=== PATIENT | male | born 1965 | race African-American/Black ===

== ENCOUNTER 2017-11-11 16:55 | Inpatient (IN) | payer OTHER ==
[2017-11-11 21:50] VITALS: BMI 22.3
--- NOTE | 2017-11-11 23:32 | HP ---
CIWA Score - CIWA Score Nausea/Vomitin-No Nausea/No Vomiting Muscle Tremors: 1-None Visible, but [place] Anxiety: 4-Mod. Anxious/Guarded Agitation: 4-Moderately Restless Paroxysmal Sweats: 3 Orientation: 3-Disoriented Date>2 days Tacttile Disturbances: 2-Mild Itch/Numbness/Burn Auditory Disturbances: 0-None Visual Disturbances: 0-None Headache: 0-None Present CIWA-Ar Total Score: 17 Admission ROS BHS - HPI Chief Complaint: " I AM AN ADDICT AND I NEED HELP" Allergies/Adverse Reactions: Allergies Allergy/AdvReac Type Severity Reaction Status Date / Time Penicillins Allergy Verified 11/11/17 23:26 History of Present Illness: 52 Y.O. AAM SEEKING DETOX FOR ALCOHOLISM CLIENT HAS A LONG HX/O SELF REFERRED. THIS IS HIS FIRST TIME HERE. STATES LAST DETOX A LITTLE OVER THREE WEEKS AGO SOMEWHERE IN [facility] DOES NOT RECALL. REPORTS IMMEDIATELY RELAPSING AFTER DC. REPORTS LONGEST CLEAN TIME 1 YEAR. Exam Limitations: Clinical Condition - Ebola screening Have you traveled outside of the country in the last 21 days: No Have you had contact with anyone from an Ebola affected area: No Have you been sick,other than usual withdrawal symptoms: No Do you have a fever: No - Review of Systems Constitutional: Loss of Appetite, Malaise, Changes in sleep EENT: reports: No Symptoms Reported Respiratory: reports: Other (HX/O ASTHMA CONGESTION) Cardiac: reports: No Symptoms Reported GI: reports: Poor Appetite, Poor Fluid Intake : reports: No Symptoms Reported Musculoskeletal: reports: Back Pain, Neck Pain Integumentary: reports: No Symptoms Reported Neuro: reports: No Symptoms reported Endocrine: reports: No Symptoms Reported Hematology: reports: No Symptoms Reported Psychiatric: reports: No Sypmtoms Reported Other Systems: Reviewed and Negative Patient History - Patient Medical History Hx Anemia: No Hx Asthma: Yes Hx Chronic Obstructive Pulmonary Disease (COPD): No Hx Cancer: No Hx Cardiac Disorders: No Hx Congestive Heart Failure: No Hx Hypertension: No Hx Hypercholesterolemia: No Hx Pacemaker: No HX Cerebrovascular Accident: No Hx Seizures: No Hx Dementia: No Hx Diabetes: No Hx Gastrointestinal Disorders: No Hx Liver Disease: No Hx Genitourinary Disorders: No Hx Sexually Transmitted Disorders: No Hx Renal Disease (ESRD): No Hx Hepatitis C: No Hx Depression: Yes (FEELS) Hx Suicide Attempt: No Hx Bipolar Disorder: No Hx Schizophrenia: No Other Medical History: DENIES - Patient Surgical History Past Surgical History: No - PPD History Previous Implant?: No Documented Results: Negative w/o proof Implanted On Prior [facility] Admission?: No PPD to be Administered?: Yes - Smoking Cessation Smoking history: Current every day smoker Have you smoked in the past 12 months: Yes Aproximately how many cigarettes per day: 30 Cigars Per Day: 0 Hx Chewing Tobacco Use: No Initiated information on smoking cessation: Yes 'Breaking Loose' booklet given: 11/11/17 - Substance & Tx. History Hx Alcohol Use: Yes Hx Substance Use: Yes Substance Use Type: Alcohol, Cocaine Hx Substance Use Treatment: Yes ([facility]) - Substances Abused LIQUOR/ BEER Route: Oral Frequency: Daily Amount used: 1PINT/5-16OZ Age of first use: 14 Date of Last Use: 11/10/17 CRACK/COCAINE Route: Smoking Frequency: Daily Amount used: $100 Age of first use: 20 Date of Last Use: 11/10/17 Family Disease History - Family Disease History Family History: Denies Admission Physical Exam [facility] - Vital Signs Vital Signs: Vital Signs - 24 hr 11/11/17 21:48 Temperature 97.8 F Pulse Rate 75 Respiratory 20 Rate Blood Pressure 151/99 - Physical General Appearance: Yes: Appropriately Dressed, Mild Distress, Tremorous, Irritable, Other (DROWSI/ AROUSABLE) HEENTM: Yes: EOMI, Normocephalic, Normal Voice, ELVA, Pharynx Normal, Nasal Congestion Respiratory: Yes: Chest Non-Tender, Lungs Clear, Normal Breath Sounds, No Respiratory Distress, No Accessory Muscle Use Neck: Yes: No masses,lesions,Nodules, Supple, Trachea in good position Breast: Yes: Breast Exam Deferred Cardiology: Yes: Regular Rhythm, Regular Rate, S1, S2 Abdominal: Yes: Normal Bowel Sounds, Non Tender, Flat, Soft Genitourinary: Yes: Within Normal Limits Back: Yes: Normal Inspection Musculoskeletal: Yes: full range of Motion, Gait Steady Extremities: Yes: Normal Capillary Refill, Normal Range of Motion, Non-Tender, Tremors Neurological: Yes: Alert, Motor Strength 5/5, Other (DROWSI) Integumentary: Yes: Normal Color, Dry, Warm Lymphatic: Yes: Within Normal Limits - Diagnostic (1) Alcohol dependence with uncomplicated withdrawal Current Visit: Yes Status: Chronic (2) Cocaine dependence, uncomplicated Current Visit: Yes Status: Chronic (3) Nicotine dependence Current Visit: Yes Status: Chronic Qualifiers: Nicotine product type: cigarettes Substance use status: uncomplicated Qualified Code(s): F17.210 - Nicotine dependence, cigarettes, uncomplicated (4) Asthma Current Visit: Yes Status: Chronic Qualifiers: Asthma severity: mild Asthma persistence: intermittent Asthma complication type: uncomplicated Qualified Code(s): J45.20 - Mild intermittent asthma, uncomplicated Cleared for Admission [facility] - Detox or Rehab [facility] Level of Care: Medically Managed Detox Regimen/Protocol: Librium Claeared for Rehab Admission: No BHS Breath Alcohol Content Breath Alcohol Content: 0 Urine Drug Screen - Results Drug Screen Negative: No Urine Drug Screen Results: PAZ-Cocaine
[2017-11-11] MEDS ORDERED: MAGNESIUM HYDROX 2400MG/30ML ORAL SUSPENSION 30 ML CUP PO PRN (23:44)
[2017-11-11] MEDS ORDERED: ACETAMINOPHEN 325 MG TABLET (FP) PO PRN (23:44)
[2017-11-11] MEDS ORDERED: LOPERAMIDE HCL 2 MG CAPSULE PO PRN (23:44)
[2017-11-11] MEDS ORDERED: MENTHOL/PHENOL 1 EACH UD MM PRN (23:44)
[2017-11-11] MEDS ORDERED: IBUPROFEN 400 MG TABLET (FP) PO PRN (23:44)
[2017-11-11] MEDS ORDERED: NICOTINE POLACRILEX 4 MG GUM BC PRN (23:44)
[2017-11-11] MEDS ORDERED: hydrOXYzine PAMOATE 50 MG CAPSULE (FP) PO PRN (23:44)
[2017-11-11] MEDS ORDERED: MAG HYDROX/AL HYDROX/SIMETH 30 ML UNIT-DOSE CUP PO PRN (23:44)
[2017-11-11] MEDS ORDERED: MAGNESIUM CITRATE 300 ML BOTTLE PO PRN (23:44)
[2017-11-11] MEDS ORDERED: guaiFENesin/D-METHORPHAN HB 10 ML UNIT-DOSE CUPS PO PRN (23:44)
[2017-11-11] MEDS ORDERED: P-EPHED 60MG/TRIPROLIDI 2.5MG TABLET PO PRN (23:44)
[2017-11-12] MEDS: chlordiazePOXIDE HCL 25 MG CAPSULE PO SCH ×6 (00:54→22:58)
[2017-11-12] MEDS: MELATONIN 5 MG TABLETS PO SCH ×2 (01:01→22:58)
--- NOTE | 2017-11-12 09:33 | PN ---
BHS COWS - Scale Resting Pulse: 0= [place] 80 or Below Sweatin= Chills/Flushing Restless Observation: 1= Difficult to Sit Still Pupil Size: 1= Pupils >than Normal Bone or Joint Aches: 2= Severe Diffuse Aches Runny Nose/ Eye Tearin= Runny Nose/Eyes GI Upset > 30mins: 1= Stomach Cramp Tremor Observation of Outstretched Hands: 1= Tremor [place], Not Seen Yawning Observation: 4= Several Times/Minute Anxiety or Irritability: 2=Irritable/Anxious Goose Flesh Skin: 0=Smooth Skin COWS Score: 15 S Progress Note (SOAP) Subjective: sweat tremor restlessness joint aches muscle pain running nose anxiety irritable Objective: 11/12/17 09:31 Vital Signs Temperature 97.9 F 11/12/17 06:00 Pulse Rate 67 11/12/17 06:00 Respiratory Rate 18 11/12/17 06:00 Blood Pressure 140/73 11/12/17 06:00 lab O2 Sat by Pulse Oximetry (%) Vital Signs Temperature 97.9 F 11/12/17 06:00 Pulse Rate 67 11/12/17 06:00 Respiratory Rate 18 11/12/17 06:00 Blood Pressure 140/73 11/12/17 06:00 O2 Sat by Pulse Oximetry (%) lab not available at this time Assessment: 11/12/17 09:32 withdrawal sx Plan: continue detox
--- NOTE | 2017-11-12 09:49 | CONSULT ---
[facility] Psychiatric Consult - Data Date of interview: 11/12/17 Admission source: [facility] Identifying data: This is 52 years opld male, single, living alone, on SSD, with no psychiatric hospitalization history. here for detox from Alcohol, Crack and Nicotine dependence. Substance Abuse History: As per [facility] report:52 Y.O. AAM SEEKING DETOX FOR ALCOHOLISM CLIENT HAS A LONG HX/O SELF REFERRED. THIS IS HIS FIRST TIME HERE. STATES LAST DETOX A LITTLE OVER THREE WEEKS AGO SOMEWHERE IN [facility] DOES NOT RECALL. REPORTS IMMEDIATELY RELAPSING AFTER DC. REPORTS LONGEST CLEAN TIME 1 YEAR. Exam Limitations: Clinical Condition Medical History: Asthma, Weight loss history Psychiatric History: Patient reports history of depression and anxiety, reports no psychiatric hospitalization history, denies suicidal history as well. Patient reports no medications taking prior to admission. Physical/Sexual Abuse/Trauma History: Denies Additional Comment: Observation. Detox Unit Care Protocol Mental Status Exam - Mental Status Exam Alert and Oriented to: Person Cognitive Function: Fair Patient Appearance: Unkempt Mood: Sad Affect: Flat Patient Behavior: Sedated Speech Pattern: Delayed Voice Loudness: Moderately Soft/Quiet Thought Process: Circumstantial Thought Disorder: Being Controlled Hallucinations: Denies Suicidal Ideation: Denies Homicidal Ideation: Denies Insight/Judgement: Fair Sleep: Difficulty falling asleep Appetite: Weight loss Muscle strength/Tone: Moderate Hypotonicity Gait/Station: Shuffling Additional Comments: Observation. Detox Unit Care Protocol Psychiatric Findings - Problem List ([place] 1, 2,3) (1) Drug-induced mood disorder Current Visit: Yes Status: Acute (2) Alcohol dependence with uncomplicated withdrawal Current Visit: Yes Status: Chronic (3) Cocaine dependence, uncomplicated Current Visit: Yes Status: Chronic (4) Nicotine dependence Current Visit: Yes Status: Chronic Qualifiers: Nicotine product type: cigarettes Substance use status: uncomplicated Qualified Code(s): F17.210 - Nicotine dependence, cigarettes, uncomplicated - Initial Treatment Plan Initial Treatment Plan: Observation. Detox Unit Care Protocol
--- NOTE | 2017-11-12 09:58 | EKG ---
Test Reason : Blood Pressure : / mmHG Vent. Rate : 058 BPM Atrial Rate : 058 BPM P-R Int : 140 ms QRS Dur : 092 ms QT Int : 404 ms P-R-T Axes : 074 072 072 degrees QTc Int : 396 ms SINUS BRADYCARDIA MODERATE VOLTAGE CRITERIA FOR LVH, MAY BE NORMAL VARIANT BORDERLINE ECG NO PREVIOUS ECGS AVAILABLE Confirmed by ZEYAD WILSON MD ([id number]) on 11/12/2017 9:58:16 AM Referred By: Confirmed By:ZEYAD WILSON MD
[2017-11-12 10:08] LABS: HEMATOCRIT 40.8 % (35.4-49); HEMOGLOBIN 12.8 GM/dL (11.7-16.9); MCHC 31.4 g/dl (32.0-35.9); MEAN CELL VOLUME 76.6 fl (80-96); MEAN PLT VOLUME 9.3 fl (7.5-11.1); PLATELET COUNT 156 K/MM3 (134-434); RBC 5.33 M/mm3 (4.00-5.60); RDW 13.8 % (11.9-15.9); WHITE BLOOD COUNT 3.7 K/mm3 (4.0-10.0)
[2017-11-12 10:38] LABS: CHLORIDE 106 mmol/L (98-107); POTASSIUM 3.8 mmol/L (3.5-5.1); SODIUM 143 mmol/L (136-145)
[2017-11-12 10:50] LABS: ALBUMIN 2.9 g/dl (3.4-5.0); ALK PHOS 127 U/L (45-117); ANION GAP 11 (8-16); BILIRUBIN,TOTAL 0.4 mg/dL (0.2-1.0); BLOOD UREA NITROGEN 12 mg/dL (7-18); CALCIUM 8.4 mg/dL (8.5-10.1); CO2 26 mmol/L (21-32); CREATININE 1.1 mg/dL (0.7-1.3); GLUCOSE,RANDOM 105 mg/dL (74-106); SGOT/AST 24 U/L (15-37); SGPT/ALT 37 U/L (12-78); TOT PROT 5.8 g/dl (6.4-8.2)
[2017-11-12] MEDS: NICOTINE 21 MG/24 HOURS TOPICAL PATCH TD SCH (10:59)
[2017-11-12] MEDS: PRENATAL VITAMINS W/ FOLIC ACID TABLET (FP) PO SCH (11:00)
[2017-11-12] MEDS: chlordiazePOXIDE HCL 25 MG CAPSULE PO PRN (11:21)
[2017-11-12] MEDS: PETROLATUM, WHITE 30 GM TUBE TP SCH (13:26)
[2017-11-12 21:20] LABS: URINE APPEARANCE CLEAR; URINE BILIRUBIN NEGATIVE (NEGATIVE); URINE BLOOD NEGATIVE (NEGATIVE); URINE COLOR LTYELLOW; URINE GLUCOSE (UA) NEGATIVE (NEGATIVE); URINE KETONE NEGATIVE (NEGATIVE); URINE LEUK ESTERASE NEGATIVE (NEGATIVE); URINE NITRITE NEGATIVE (NEGATIVE); URINE PROTEIN NEGATIVE (NEGATIVE); URINE UROBILINOGEN NEGATIVE mg/dL (0.2-1.0)
[2017-11-12] MEDS: THIAMINE HCL 100 MG TABLET (FP) PO SCH (22:58)
[2017-11-13] MEDS: chlordiazePOXIDE HCL 25 MG CAPSULE PO SCH ×3 (06:52→18:20)
[2017-11-13] MEDS: PRENATAL VITAMINS W/ FOLIC ACID TABLET (FP) PO SCH (11:13)
[2017-11-13] MEDS: PETROLATUM, WHITE 30 GM TUBE TP SCH (11:15)
[2017-11-13] MEDS: NICOTINE 21 MG/24 HOURS TOPICAL PATCH TD SCH (11:15)
--- NOTE | 2017-11-13 12:12 | PN ---
[facility] CIWA - CIWA Score Nausea/Vomitin-Mild Nausea/No Vomiting Muscle Tremors: 4-Moderate,w/Arms Extend Anxiety: 4-Mod. Anxious/Guarded Agitation: 3 Paroxysmal Sweats: 1-Minimal [place] Moist Orientation: 0-Oriented Tacttile Disturbances: 0-None Auditory Disturbances: 0-None Visual Disturbances: 0-None Headache: 0-None Present CIWA-Ar Total Score: 13 BHS Progress Note (SOAP) Subjective: sweat tremor mild gi distress restlessness sleep little better agitative irritable Objective: 11/13/17 12:12 Vital Signs Temperature 97.7 F 11/13/17 10:00 Pulse Rate 78 11/13/17 10:00 Respiratory Rate 16 11/13/17 10:00 Blood Pressure 140/86 11/13/17 10:00 O2 Sat by Pulse Oximetry (%) Laboratory Last Values WBC 3.7 K/mm3 (4.0-10.0) L 11/12/17 07:00 RBC 5.33 M/mm3 (4.00-5.60) 11/12/17 07:00 Hgb 12.8 GM/dL (11.7-16.9) 11/12/17 07:00 Hct 40.8 % (35.4-49) 11/12/17 07:00 MCV 76.6 fl (80-96) L 11/12/17 07:00 MCH 24.0 pg (25.7-33.7) L 11/12/17 07:00 MCHC 31.4 g/dl (32.0-35.9) L 11/12/17 07:00 RDW 13.8 % (11.9-15.9) 11/12/17 07:00 Plt Count 156 K/MM3 (134-434) 11/12/17 07:00 MPV 9.3 fl (7.5-11.1) 11/12/17 07:00 Sodium 143 mmol/L (136-145) 11/12/17 07:00 Potassium 3.8 mmol/L (3.5-5.1) 11/12/17 07:00 Chloride 106 mmol/L (98-107) 11/12/17 07:00 Carbon Dioxide 26 mmol/L (21-32) 11/12/17 07:00 Anion Gap 11 (8-16) 11/12/17 07:00 BUN 12 mg/dL (7-18) 11/12/17 07:00 Creatinine 1.1 mg/dL (0.7-1.3) 11/12/17 07:00 Creat Clearance w eGFR > 60 (>60) 11/12/17 07:00 Random Glucose 105 mg/dL (74-106) 11/12/17 07:00 Calcium 8.4 mg/dL (8.5-10.1) L 11/12/17 07:00 Total Bilirubin 0.4 mg/dL (0.2-1.0) 11/12/17 07:00 AST 24 U/L (15-37) 11/12/17 07:00 ALT 37 U/L (12-78) 11/12/17 07:00 Alkaline Phosphatase 127 U/L (45-117) H 11/12/17 07:00 Total Protein 5.8 g/dl (6.4-8.2) L 11/12/17 07:00 Albumin 2.9 g/dl (3.4-5.0) L 11/12/17 07:00 Urine Color Ltyellow 11/12/17 20:00 Urine Appearance Clear 11/12/17 20:00 Urine pH 6.0 (5.0-8.0) 11/12/17 20:00 Ur Specific [place] 1.013 (1.001-1.035) 11/12/17 20:00 Urine Protein Negative (NEGATIVE) 11/12/17 20:00 Urine Glucose (UA) Negative (NEGATIVE) 11/12/17 20:00 Urine Ketones Negative (NEGATIVE) 11/12/17 20:00 Urine Blood Negative (NEGATIVE) 11/12/17 20:00 Urine Nitrite Negative (NEGATIVE) 11/12/17 20:00 Urine Bilirubin Negative (NEGATIVE) 11/12/17 20:00 Urine Urobilinogen Negative mg/dL (0.2-1.0) 11/12/17 20:00 Ur Leukocyte Esterase Negative (NEGATIVE) 11/12/17 20:00 RPR Titer Nonreactive (NONREACTIVE) 11/12/17 07:00 HIV 1&2 Antibody Screen Negative 11/12/17 07:00 HIV P24 Antigen Negative 11/12/17 07:00 lab noted Assessment: 11/13/17 12:12 wtihdrawal sx Plan: continue detox
[2017-11-13] MEDS: THIAMINE HCL 100 MG TABLET (FP) PO SCH (22:19)
[2017-11-13] MEDS: MELATONIN 5 MG TABLETS PO SCH (22:19)
[2017-11-13] MEDS: chlordiazePOXIDE 5 MG CAPSULE PO SCH (22:20)
[2017-11-14] MEDS: chlordiazePOXIDE 5 MG CAPSULE PO SCH ×3 (06:46→22:22)
[2017-11-14] MEDS: chlordiazePOXIDE HCL 25 MG CAPSULE PO PRN (06:53)
--- NOTE | 2017-11-14 10:03 | PN ---
BHS Progress Note (SOAP) Subjective: interrupted sleep, cranky and fady pain of soles of feet. Objective: 11/14/17 10:01 Vital Signs Temperature 96.3 F L 11/14/17 09:35 Pulse Rate 71 11/14/17 09:35 Respiratory Rate 18 11/14/17 09:35 Blood Pressure 134/80 11/14/17 09:35 O2 Sat by Pulse Oximetry (%) Laboratory Tests 11/12/17 11/12/17 11/12/17 07:00 07:00 07:00 WBC 3.7 L RBC 5.33 Hgb 12.8 Hct 40.8 MCV 76.6 L MCH 24.0 L MCHC 31.4 L RDW 13.8 Plt Count 156 MPV 9.3 Sodium 143 Potassium 3.8 Chloride 106 Carbon Dioxide 26 Anion Gap 11 BUN 12 Creatinine 1.1 Creat Clearance w eGFR > 60 Random Glucose 105 Calcium 8.4 L Total Bilirubin 0.4 AST 24 ALT 37 Alkaline Phosphatase 127 H Total Protein 5.8 L Albumin 2.9 L Urine Color Urine Appearance Urine pH Ur Specific [place] Urine Protein Urine Glucose (UA) Urine Ketones Urine Blood Urine Nitrite Urine Bilirubin Urine Urobilinogen Ur Leukocyte Esterase RPR Titer Nonreactive HIV 1&2 Antibody Screen HIV P24 Antigen 11/12/17 11/12/17 07:00 20:00 WBC RBC Hgb Hct MCV MCH MCHC RDW Plt Count MPV Sodium Potassium Chloride Carbon Dioxide Anion Gap BUN Creatinine Creat Clearance w eGFR Random Glucose Calcium Total Bilirubin AST ALT Alkaline Phosphatase Total Protein Albumin Urine Color Ltyellow Urine Appearance Clear Urine pH 6.0 Ur Specific [place] 1.013 Urine Protein Negative Urine Glucose (UA) Negative Urine Ketones Negative Urine Blood Negative Urine Nitrite Negative Urine Bilirubin Negative Urine Urobilinogen Negative Ur Leukocyte Esterase Negative RPR Titer HIV 1&2 Antibody Screen Negative HIV P24 Antigen Negative pt aox3 in nad , lying in bed feet + scaly, and with calices 11/14/17 10:02 Assessment: 11/14/17 10:03 withdrawal sx's sole pain Plan: cont. detox increase fluids lidocaine gel d/c in am
[2017-11-14] MEDS ORDERED: LIDOCAINE HCL 5% TOP OINTMENT 50 GM TUBE TP ONE (10:30)
[2017-11-14] MEDS: PRENATAL VITAMINS W/ FOLIC ACID TABLET (FP) PO SCH (10:46)
[2017-11-14] MEDS: PETROLATUM, WHITE 30 GM TUBE TP SCH (10:47)
[2017-11-14] MEDS: NICOTINE 21 MG/24 HOURS TOPICAL PATCH TD SCH (10:47)
[2017-11-14] MEDS: chlordiazePOXIDE HCL 10 MG CAPSULE PO SCH (23:41)
[2017-11-14] MEDS: THIAMINE HCL 100 MG TABLET (FP) PO SCH (23:41)
[2017-11-14] MEDS: MELATONIN 5 MG TABLETS PO SCH (23:41)
[2017-11-15] MEDS: chlordiazePOXIDE HCL 10 MG CAPSULE PO SCH (06:36)
[2017-11-15 09:48] VITALS: BP 110/79; PULSE 90; TEMP 97.9
--- NOTE | 2017-11-15 15:29 | PN ---
BHS Progress Note (SOAP) Subjective: I feel good no new complaints Objective: 11/15/17 15:27 A & O x 3 gait steady Vital Signs Temperature 97.9 F 11/15/17 09:47 Pulse Rate 90 11/15/17 09:47 Respiratory Rate 20 11/15/17 09:47 Blood Pressure 110/79 11/15/17 09:47 O2 Sat by Pulse Oximetry (%) Assessment: 11/15/17 15:28 detox successfully completed Plan: discharge
--- NOTE | 2017-11-15 15:36 | DS ---
[facility] Detox Discharge Summary Admission Date: 11/11/17 Discharge Date: 11/15/17 - History Additional Comments: pt for discharge to do o/p rehab declines prescription for asthma, states "i have refills at my pharmacy - Physical Exam Results Vital Signs: Vital Signs Temperature 97.9 F 11/15/17 09:47 Pulse Rate 90 11/15/17 09:47 Respiratory Rate 20 11/15/17 09:47 Blood Pressure 110/79 11/15/17 09:47 O2 Sat by Pulse Oximetry (%) Pertinent Admission Physical Exam Findings: withdrawal sx - Treatment Hospital Course: Detox Protocol Followed, Detoxed Safely, Responded well, Discharged Condition Good Patient has Accepted a Rehab Referral to: O/p rehab - Medication Discharge Medications: Ambulatory Orders NK [No Known Home Medication] 11/11/17 - Diagnosis (1) Alcohol dependence with uncomplicated withdrawal Status: Chronic (2) Cocaine dependence, uncomplicated Status: Chronic (3) Nicotine dependence Status: Chronic Qualifiers: Nicotine product type: cigarettes Substance use status: uncomplicated Qualified Code(s): F17.210 - Nicotine dependence, cigarettes, uncomplicated (4) Drug-induced mood disorder Status: Acute (5) Asthma Status: Chronic Qualifiers: Asthma severity: mild Asthma persistence: intermittent Asthma complication type: uncomplicated Qualified Code(s): J45.20 - Mild intermittent asthma, uncomplicated - AMA Did Patient Leave Against Medical Advice: No
== END 2017-11-15 10:10 | disposition home or self-care (01) | DRG 774 ==
LOC: YASAS 16:55 → Y6N 23:07
PROVIDERS: ADMIT Internal Medicine; ATTEND Internal Medicine
PROC: HZ2ZZZZ Detoxification Services for Substance Abuse Treatment (ICD-10-PCS; principal; 2017-11-11)
DX: F10.230 Alcohol dependence with withdrawal, uncomplicated (principal); F14.20 Cocaine dependence, uncomplicated; F17.210 Nicotine dependence, cigarettes, uncomplicated; F19.24 Other psychoactive substance dependence with psychoactive substance-induced mood disorder; J45.20 Mild intermittent asthma, uncomplicated; Z59.0 Homelessness
CPT/HCPCS: 36415; 80053; 81003; 85027; 86593; 87389; 93005; 93010